=== PATIENT | female | born 1995 | race Caucasian/White ===

== ENCOUNTER 2020-12-19 12:43 | Emergency (ER) | payer MEDICAID ==
[~2020-12-19] VITALS: Ht 170.2 cm; Wt 44.6 kg
[2020-12-19 12:47] VITALS: BP 107/55
[2020-12-19] MEDS ORDERED: dexamethasone sod phosphate 10mg/ml inj PO STA (13:02)
== END 2020-12-19 13:17 | disposition home or self-care (01) ==
LOC: ER 12:43
DX: J02.9 Acute pharyngitis, unspecified (principal); B34.9 Viral infection, unspecified; F17.200 Nicotine dependence, unspecified, uncomplicated
CPT/HCPCS: 99283; J1100

== ENCOUNTER 2020-12-22 15:08 | Emergency (ER) | payer MEDICAID ==
[~2020-12-22] VITALS: Ht 170.2 cm; Wt 59.1 kg
[2020-12-22 15:34] VITALS: BP 120/84
[2020-12-22] MEDS ORDERED: AMOX500C2 PO (17:57)
[2020-12-22] MEDS ORDERED: NAPR220C15 PO (17:57)
== END 2020-12-22 18:05 | disposition home or self-care (01) ==
LOC: ER 15:09
DX: K12.2 Cellulitis and abscess of mouth (principal)
CPT/HCPCS: 99283